=== PATIENT | female | born 1970 | race Caucasian/White ===

== ENCOUNTER 2017-06-16 07:41 | Day surgery (SDC) | payer BC, OTHER ==
[2017-06-12 11:26] VITALS: BMI 20.3
[~2017-06-16 07:41] MED LIST: LACTATED RINGERS 1,000 ML IV SCH; LIDOCAINE 1% 20 ML VIAL (10MG/ML) FOR IV START INTRADERMA PRN
[2017-06-16 08:17] VITALS: RESP 16; TEMP 97.6
[2017-06-16] MEDS ORDERED: LIDOCAINE 1% 20 ML VIAL (10MG/ML) FOR IV START INTRADERMA ONE (08:29)
[2017-06-16] MEDS ORDERED: LIDOCAINE 1% INJ 10MG/ML (20 ML MDV) ONE (09:17)
[2017-06-16] MEDS ORDERED: PROPOFOL 10 MG/ML 20 ML VIAL IV ONE (09:17)
--- NOTE | 2017-06-16 09:23 | P.GSHP ---
History of Present Illness H&P Date: 06/16/17 Chief Complaint: Constipation, abdominal pain This a 47-year-old female who presents today for colonoscopy. She's had issues with constipation abdominal pain. Past Medical History Past Medical History: Asthma, Cancer, COPD, Musculoskeletal Disorder Additional Past Medical History / Comment(s): CHRONIC LOWER BACK PAIN. "STAGE 1 CERVICAL CA." "EARLY COPD." CONSTIPATION, NO BM UNLESS USING MOM FOR PAST 1 1/2 MONTHS. History of Any Multi-Drug Resistant Organisms: None Reported Past Surgical History: Hysterectomy Additional Past Surgical History / Comment(s): RT OVARY, TUBE REMOVED. LAPAROSCOPIES. SINUS SURGERY. CERVIX EXCISION. Past Anesthesia/Blood Transfusion Reactions: No Reported Reaction Smoking Status: Current every day smoker - Past Family History Mother Family Medical History: Cancer Medications and Allergies Home Medications Medication Instructions Recorded Confirmed Type QUEtiapine FUMARATE [SEROquel] 350 mg PO HS 02/09/14 06/16/17 History SUMAtriptan SUCCINATE [Imitrex] 100 mg PO DIRECTED PRN 02/09/14 06/16/17 History Topiramate [Topamax] 150 mg PO BID 02/09/14 06/16/17 History Magnesium Hydroxide [Milk of 400 mg PO DIRECTED PRN 06/12/17 06/16/17 History Magnesia] Naproxen [Naprosyn] 500 mg PO Q12HR PRN 06/12/17 06/16/17 History SUMAtriptan SUCCINATE [Imitrex] 6 mg SQ DIRECTED PRN 06/12/17 06/16/17 History diphenhydrAMINE [Benadryl] 50 mg PO BID PRN 06/12/17 06/16/17 History Allergies Allergy/AdvReac Type Severity Reaction Status Date / Time No Known Allergies Allergy Verified 06/16/17 08:05 Surgical - Exam Vital Signs Temp Pulse Resp BP Pulse Ox 97.6 F 97 16 110/73 98 06/16/17 08:15 06/16/17 08:15 06/16/17 08:15 06/16/17 08:15 06/16/17 08:15 - General well developed, no distress - Eyes PERRL - ENT normal pinna - Neck no masses - Respiratory normal expansion - Cardiovascular Rhythm: regular - Abdomen Abdomen: soft, non tender Assessment and Plan Assessment: Constipation, abdominal pain. We'll perform colonoscopy.
--- NOTE | 2017-06-16 09:42 | P.OP ---
Date of Procedure: 06/16/17 Preoperative Diagnosis: Abdominal pain Constipation Postoperative Diagnosis: Mild diverticulosis Rectal polyp Procedure(s) Performed: Colonoscopy Anesthesia: MAC Surgeon: Surendra Alexis Pathology: other (Rectal polyp) Condition: stable Disposition: PACU Description of Procedure: The patient's placed on the endoscopy table in the lateral position. She received IV sedation. Digital rectal exam was performed which revealed no rebound is. The flexible colonoscope was then placed patient anus passed throughout the entire colon. The ileocecal valve was visualized. The cecum, ascending and transverse colon appeared normal. In the descending and sigmoid there was mild diverticular changes. The scope was then brought back the rectum and another polyp seen this removed the forcep. Scope was withdrawn for patient.
[2017-06-16 10:01] VITALS: BP 110/74; PULSE 74
== END 2017-06-16 10:20 | disposition home or self-care (01) ==
LOC: ORWHC2ENDO 07:41
PROVIDERS: ATTEND Surgery
DX: K62.1 Rectal polyp (principal); K57.30 Diverticulosis of large intestine without perforation or abscess without bleeding; Z85.41 Personal history of malignant neoplasm of cervix uteri; J44.9 Chronic obstructive pulmonary disease, unspecified; M54.5 Low back pain; G89.29 Other chronic pain; G43.909 Migraine, unspecified, not intractable, without status migrainosus; Z79.899 Other long term (current) drug therapy; F17.210 Nicotine dependence, cigarettes, uncomplicated
CPT/HCPCS: 88305; 45380; J2001; J2704

== ENCOUNTER → 2018-02-10 | Outpatient (CLI) | payer BC ==
--- NOTE | 2018-02-15 12:00 | MM ---
Reason for exam: screening (asymptomatic). Last mammogram was performed 3 years and 10 months ago. History: Patient history of endometrial cancer. Family history of breast cancer in mother at age 65. Physical Findings: A clinical breast exam by your physician is recommended on an annual basis and results should be correlated with mammographic findings. MG 3D Screening Mammo W/Cad Bilateral CC and MLO view(s) were taken. Prior study comparison: April 26, 2014, bilateral MG screening mammo w CAD. May 24, 2010, bilateral digital screening mammo w/CAD. The breast tissue is heterogeneously dense. This may lower the sensitivity of mammography. No significant changes when compared with prior studies. ASSESSMENT: Benign, BI-RAD 2 RECOMMENDATION: Routine screening mammogram of both breasts in 1 year.
== END | disposition home or self-care (01) ==
LOC: RADMAMWWP 15:12
PROVIDERS: ATTEND Family Medicine
DX: Z12.31 Encounter for screening mammogram for malignant neoplasm of breast (principal)
CPT/HCPCS: 77063; 77067

== ENCOUNTER → 2019-07-25 | Outpatient (CLI) | payer OTHER ==
--- NOTE | 2019-07-25 10:36 | NM ---
EXAMINATION TYPE: NM hepatobiliary w EF DATE OF EXAM: 07/25/2019 COMPARISON: NONE HISTORY: K 80.20 TECHNIQUE: After the intravenous administration of 4.8 mCi Tc 99m Mebrofenin hepatobiliary scintigrap hy is performed. Immediate images post injection. FINDINGS: There is satisfactory initial accumulation of tracer by the liver. The gallbladder is visualized wit hin 46 minutes. The small bowel activity is noted within 34 minutes. At one hour 8 ounces of oral e nsure plus is given to mimic CCK and gallbladder ejection fraction is calculated at 77 %, in the norm al range. Therefore there is no scintigraphic evidence of cystic or common bile duct obstruction to suggest acute cholecystitis or gallbladder dyskinesia. IMPRESSION: No scintigraphic evidence of acute cholecystitis, chronic cholecystitis, nor biliary dysk inesia.
== END | disposition home or self-care (01) ==
LOC: RADNMMAIN 07:16
PROVIDERS: ATTEND Internal Medicine
DX: K80.20 Calculus of gallbladder without cholecystitis without obstruction (principal)
CPT/HCPCS: 78226; A9537

== ENCOUNTER → 2019-12-07 | Outpatient (CLI) | payer OTHER ==
--- NOTE | 2019-12-07 11:59 | XR ---
EXAMINATION TYPE: XR chest 2V DATE OF EXAM: 12/07/2019 COMPARISON: 01/03/2015 TECHNIQUE: PA and lateral views submitted. HISTORY: Sternal and chest pain FINDINGS: The lungs are clear and there is no pneumothorax, pleural effusion, or focal pneumonia. Hyperinflat ion suggests COPD. Biapical pleural thickening. No overt failure. Heart size normal. There is a scoli osis. Hypertrophic and degenerative change of the spine. IMPRESSION: 1. No acute process. Correlate for COPD.
== END | disposition home or self-care (01) ==
LOC: RADXRYALE 11:40
PROVIDERS: ATTEND Internal Medicine
DX: R07.89 Other chest pain (principal)
CPT/HCPCS: 71046

== ENCOUNTER 2020-04-03 06:31 | Day surgery (SDC) | payer OTHER ==
[2020-03-27 15:19] VITALS: BMI 18.2
[~2020-04-03 06:31] MED LIST changes: +ALPRAZolam 0.25 MG TAB PO PRN; +ALPRAZolam 0.5 MG TAB PO PRN; +ASPIRIN 325 MG TAB PO STA; +ATORVASTATIN 80 MG TAB PO STA; -LACTATED RINGERS 1,000 ML IV SCH; -LIDOCAINE 1% 20 ML VIAL (10MG/ML) FOR IV START INTRADERMA PRN; +NITROGLYCERIN SL TABS 0.4 MG TAB SUBLINGUAL PRN; +SODIUM CHLORIDE 0.9% 1,000 ML in EMPTY BAG 1 BAG IV ONE
[2020-04-03] MEDS ORDERED: FAMOTIDINE 20 MG/2 ML VIAL IV STA (06:47)
[2020-04-03] MEDS ORDERED: diphenhydrAMINE 50 MG/ML 1 ML VIAL IVP STA (06:47)
[2020-04-03] MEDS ORDERED: methylPREDNISolone SOD SUCCI 125 MG/2 ML VIAL IV STA (06:47)
[2020-04-03 07:13] VITALS: RESP 18; TEMP 98.2
[2020-04-03] MEDS ORDERED: MIDAZOLAM 2 MG/2 ML VIAL IV ONE ×2 (07:44→07:46)
[2020-04-03] MEDS ORDERED: fentaNYL (PF) 50 MCG/ML 2 ML AMP IV ONE (07:44)
[2020-04-03] MEDS: LIDOCAINE 1% INJ 10MG/ML (20 ML MDV) SQ ONE ×2 (07:46→07:53)
[2020-04-03] MEDS ORDERED: IOPAMIDOL-370 125ML BTL INJ ONE (08:05)
[2020-04-03] MEDS ORDERED: RX INFO: IV CONTRAST WAS GIVEN 1 EACH MISC MISCELLANE PRN (08:19)
[2020-04-03] MEDS ORDERED: SODIUM CHLORIDE 0.9% 1,000 ML IV SCH (08:30)
--- NOTE | 2020-04-03 08:33 | P.CARDCATH ---
Date of Procedure: 04/03/20 Preoperative Diagnosis: recurrent chest pains, smoking and family history Postoperative Diagnosis: normal coronary arteries Procedure(s) Performed: left heart catheterization without left ventriculography Description of Procedure: HISTORY: This is a 49-year-old female with history of smoking, family history of ischemic heart disease who has been experiencing recurrent chest pains. Patient had a negative stress test. However, patient continued to have chest pain and wanted to have cardiac catheterization for definite diagnosis. CONSENT:I have discussed the risks, benefits and alternative therapies for the above-mentioned procedure and for both sedation/analgesia as well as necessary blood product administration, if indicated, as they pertain to this patient. The patient has indicated understanding and acceptance of the risks and procedures discussed. PROCEDURE: Patient was brought to the lab in a fasting state. Patient was given some IV sedation.Attempts were made to do catheterization from right radial stacey ding . The right radial artery was entered, but wire could not be advanced.subsequently, the procedure was finished from the right groin approach. Hemostasis was obtained with manual compression. The right groin is infiltrated with lidocaine and right femoral artery was entered using Seldinger technique. A 6-Irish catheter was left in place and selective coronary arteriography and left ventriculography was performed. Patient tolerated the procedure well. Femoral angiogram was performed and manual compression was applied for hemostasis. No immediate complications were noted and patient was transferred to [facility] in a stable condition Conscious Sedation: Versed 1mg Fentanyl 50 g Duration 27minutes HEMODYNAMICS: Aortic pressure is about 100/70.The left ventricle end-diastolic pressure was 12-15. There was no gradient across the aortic valve SELECTIVE CORONARY ARTERIOGRAPHY: LEFT MAIN: normal length and free of occlusive disease THE LEFT ANTERIOR DESCENDING CORONARY ARTERY:Good caliber vessel which wraps around the apex. Free of any occlusive disease THE LEFT CIRCUMFLEX AND IS CORONARY ARTERY: Moderate caliber vessel free of occlusive disease THE RIGHT CORONARY ARTERY: Good caliber vessel and dominant in distribution. Free of any occlusive disease LEFT VENTRICULOGRAPHY: Not performed FINAL IMPRESSION: Normal coronary arteries. Normal end-diastolic pressure. No gradient across the aortic valve PLAN: Medical therapy and this factor modification PROGNOSIS: Good
[2020-04-03] MEDS ORDERED: SUMATRIPTAN SUCCINATE 100 MG PO PRN (14:10)
[2020-04-03] MEDS ORDERED: SUMAtriptan succinate 50 MG TAB PO ONE (14:15)
[2020-04-03 17:18] VITALS: BP 98/64; PULSE 77
== END 2020-04-03 16:15 | disposition home or self-care (01) ==
LOC: CATHCVL 06:31
PROVIDERS: ATTEND Internal Medicine Cardiovascular Disease
DX: R07.9 Chest pain, unspecified (principal); R00.2 Palpitations; R00.0 Tachycardia, unspecified; F17.200 Nicotine dependence, unspecified, uncomplicated; Z82.49 Family history of ischemic heart disease and other diseases of the circulatory system
CPT/HCPCS: 93458; C1894 ×2; C1769 ×3; J2250; J1200; J2930; J2001; J3010; Q9967

== ENCOUNTER → 2020-05-24 | Outpatient (CLI) | payer OTHER ==
--- NOTE | 2020-05-24 16:52 | XR ---
Bilateral RIBS and chest x-ray HISTORY: Pain 4 views of the right ribs, 4 views of the left ribs and a frontal view of the chest are submitted and correlated prior chest x-ray 12/07/2019 Bone mineralization is maintained. There is no evident displaced rib fracture. No pneumothorax or ple ural effusion. Prominent lung volumes may be indicative of underlying COPD. There is thoracic spondyl osis present. Spinal curvature is present. Cardiac mediastinal silhouette is stable. Apical pleural t hickening is unchanged. No pneumothorax or pleural effusion. IMPRESSION: There is an underlying scoliotic curvature of the thoracic lumbar spine. Increased lung v olumes suggest COPD. Bone scan may be of benefit to assess for occult rib abnormality as indicated.
== END | disposition home or self-care (01) ==
LOC: RADXRYALE 12:58
PROVIDERS: ATTEND Internal Medicine
DX: R07.81 Pleurodynia (principal)
CPT/HCPCS: 71111

== ENCOUNTER → 2020-06-13 | Outpatient (CLI) | payer OTHER | END | disposition home or self-care (01) | LOC: LABWHC1 16:01 | PROVIDERS: ATTEND Internal Medicine | DX: Z20.822 Contact with and (suspected) exposure to COVID-19 (principal) | CPT/HCPCS: U0003; C9803 ==

== ENCOUNTER → 2020-07-26 | Outpatient (CLI) | payer OTHER | END | disposition home or self-care (01) | LOC: RADUSWWP 06:55 | PROVIDERS: ATTEND Family Medicine | DX: I73.9 Peripheral vascular disease, unspecified (principal) | CPT/HCPCS: 93922 ==

== ENCOUNTER → 2020-09-04 | Outpatient (CLI) | payer OTHER ==
--- NOTE | 2020-09-04 12:59 | BD ---
EXAMINATION TYPE: Axial Bone Density DATE OF EXAM: 09/04/2020 COMPARISON: NONE CLINICAL HISTORY: 50 YR OLD FEMALE.....ICD-10 CODE: Z78.9 POST MENOPAUSAL Height: 63 Weight: 112 FRAX RISK QUESTIONS: Glucocorticoids (More than 3mos): YES (Ex: prednisone, prednisolone, methylprednisolone, dexamethasone, and hydrocortisone). Current Tobacco Use: YES RISK FACTORS HISTORY OF: Diet low in dairy products/other sources of calcium: YES, ALLERGIC Postmenopausal woman: YES, AT AGE 46 Hyperparathyroidism: NO Adrenal Insufficiency: NO MEDICATIONS: Prednisone or other steroids: ALBUTEROL, COPD AND ASTHMA, MANY YRS Additional Medications: IMITREX, NSAID PRN Additional History: MIGRAINES, ARTHRITIS PAIN EXAM MEASUREMENTS: Bone mineral densitometry was performed using the [employer]. Bone mineral density as measured about the Lumbar spine is: ----- L1-L4(G/cm2): 0.968 T Score Values are as follows: ----- L1: -2.1 ----- L2: -1.7 ----- L3: -1.6 ----- L4: -1.1 ----- L1-L4: -1.8 Bone mineral density THIS IS FIRST DEXA SCAN....BASELINE STUDY Bone mineral density about the R hip (g/cm2): 0.832 Bone mineral density about the L hip (g/cm2): 0.777 T Score values are as follows: -----R Neck: -1.8 -----L Neck: -2.2 -----R Total: -1.4 -----L Total: -1.8 Bone mineral density BASELINE STUDY FRAX%s: THERE IS A 10.9% CHANCE FOR A MAJOR OSTEOPOROTIC FX AND A 3.3% FOR HIP......PROBABILITY FO R FX IN 10 YRS TIME IMPRESSION: Osteopenia. NOTE: T-SCORE=SD OF THE YOUNG ADULT MEAN.
--- NOTE | 2020-09-06 09:28 | MM ---
Reason for exam: screening (asymptomatic). Last mammogram was performed 2 years and 7 months ago. History: Patient is postmenopausal and has history of endometrial cancer at age 35. Family history of breast cancer in mother at age 65 and breast cancer in maternal grandmother. Physical Findings: A clinical breast exam by your physician is recommended on an annual basis and results should be correlated with mammographic findings. MG 3D Screening Mammo W/Cad Bilateral CC and MLO view(s) were taken. Prior study comparison: February 10, 2018, bilateral MG 3d screening mammo w/cad. April 26, 2014, bilateral MG screening mammo w CAD. The breast tissue is heterogeneously dense. This may lower the sensitivity of mammography. ASSESSMENT: Negative, BI-RAD 1 RECOMMENDATION: Routine screening mammogram of both breasts in 1 year.
== END | disposition home or self-care (01) ==
LOC: RADMAMWWP 06:48
PROVIDERS: ATTEND Family Medicine
DX: Z12.31 Encounter for screening mammogram for malignant neoplasm of breast (principal); Z13.820 Encounter for screening for osteoporosis; M85.89 Other specified disorders of bone density and structure, multiple sites; Z78.0 Asymptomatic menopausal state; Z80.3 Family history of malignant neoplasm of breast
CPT/HCPCS: 77063; 77067; 77080

== ENCOUNTER → 2020-09-25 | Outpatient (CLI) | payer OTHER ==
--- NOTE | 2020-09-25 08:54 | CT ---
EXAMINATION TYPE: CT facial bones wo con DATE OF EXAM: 09/25/2020 COMPARISON: NONE HISTORY: Chronic sinusitis, unspecified per order. Headaches with extremity weakness and numbness per patient. CT DLP: 646 mGycm. Automated Exposure Control for Dose Reduction was Utilized. TECHNIQUE: CT scan of the facial bones is performed without contrast, axial images are obtained, navjot nal reformatted images are also reviewed. FINDINGS: The paranasal sinuses including the frontal, ethmoid, sphenoid, and maxillary sinuses bila terally are well-aerated without suspicious opacification or air-fluid levels. The ostiomeatal compl ex is widely patent bilaterally on the coronal images. Orbital floors and navarro are intact. The globes are intact bilaterally. The zygomatic arches are inta ct. The nasal bones are intact. Visualized portion of mandible is intact. The temporomandibular joint s are maintained bilaterally. The pterygoid plates are intact. Visualized portion of mastoid air cells show no abnormal opacification. Visualized portion of brain p arenchyma is unremarkable. IMPRESSION: The sinuses are clear and the ostiomeatal complex is patent bilaterally.
== END | disposition home or self-care (01) ==
LOC: RADCTMAIN 07:27
PROVIDERS: ATTEND Family Medicine
DX: J32.9 Chronic sinusitis, unspecified (principal); R51.9 Headache, unspecified; R29.898 Other symptoms and signs involving the musculoskeletal system; R20.2 Paresthesia of skin
CPT/HCPCS: 70486

== ENCOUNTER → 2020-11-21 | Outpatient (CLI) | payer OTHER ==
--- NOTE | 2020-11-21 18:44 | CONS ---
CONSULTATION DATE OF SERVICE: 11/21/2020 This 50-year-old lady has been evaluated in the sleep center for multiple awakenings from sleep, snoring, awakenings with vivid dreams of smoke and fire. HISTORY OF PRESENT ILLNESS/SLEEP-WAKE EVALUATION: The patient has a positive history of sleepwalking until age of 28. At present her sleep schedule is from 10 p.m. to 5 a.m. She does have problems with falling asleep and has a TV set in the bedroom. She usually sleeps on the side position. She snores and wakes up from sleep 4 times with 3 episodes of nocturia. Positive history of palpitations and heartburn. In the morning the patient wakes up tired, worries about her sleep, has problems with concentration and sexual dysfunction. [place] Sleepiness Scale is 6. The patient may take one nap in the morning. She takes two caffeinated beverages in the morning and one in the afternoon. Positive history of night terrors in the past. PAST MEDICAL HISTORY: Positive for headaches, some of them extremely strong and long. Some of them happened after awakenings in the morning. Asthma, arthritis, cervical cancer, acid reflux, nasal polyps. PAST SURGICAL HISTORY: Hysterectomy, partial. Surgery for cancer of the cervix. Sinus surgery. SOCIAL HISTORY: Positive for 30 pack/years of smoking. Continues to smoke. MEDICATIONS: 1. Imitrex 100 mg as needed. 2. 100 mg as needed for migraines. FAMILY HISTORY: Stroke, diabetes. REVIEW OF SYSTEMS: No fevers. No double vision. No recent chest pain. No shortness of breath. No abdominal pain. No bleeding episodes. No blood in the urine. No seizure episodes. Multiple awakenings from sleep, episodes of migraines, some of them after awakenings in the morning. PHYSICAL EXAMINATION: GENERAL: lady without distress. VITAL SIGNS: BP 121/75, HR 78, RR 12, height 5 feet 5-3/4 inches, weight 111 pounds, body mass index 18.4, temperature 97.2, oxygen saturation at room air 95%. HEENT: PERRLA, EOMI, evaluation of oropharynx showed tongue protrudes midline. Extremely low position of soft palate; Mallampati IV. NECK: Supple, no JVD. Thyroid is not palpable. Neck measures 14-1/2 inches in circumference. LUNGS: Clear to percussion and to auscultation. Good air exchange. No wheezing or rhonchi. HEART: S1, S2 regular. No murmurs, gallops, or rubs. ABDOMEN: Soft and nontender. Bowel sounds are present. No organomegaly appreciated. EXTREMITIES: No clubbing or cyanosis. [employer] AGENT: Awake, alert, and oriented X3. Cranial nerves 2 to 7 intact. There is no fasciculation or atrophy. noted. No focal deficits observed. IMPRESSION: 1. Snoring, multiple awakenings from sleep with nocturia, extremely low position of soft palate, Mallampati IV; possible obstructive sleep apnea-hypopnea syndrome. 2. History of sleepwalking in the past. 3. Episodes of awakenings with vivid dreams. 4. History of night terrors. 5. History of migraines; some episodes started after awakenings in the morning. 6. History of asthma. 7. History of arthritis. 8. History of cervical carcinoma, treated surgically. 9. Status post partial hysterectomy. 10.Acid reflux. 11.History of nasal polyps. 12.Status post sinus surgery. PLAN: 1. Polysomnography for evaluation of patient's breathing during sleep and also to check for any abnormal movements. 2. Sleep hygiene with regular time in bed for at least 7-1/2 to 8 hours. 3. No driving if feeling sleepiness. 4. Following plan after reviewing results of the sleep study. Thank you very much for referring this patient for consultation. Sincerely, Prosper Westfall MD, PhD, FAASM Diplomat of [employer] Sleep Medicine Board of [employer] of [facility] MMODL / IJN: [id number] /
== END ==
LOC: SLEEP 11:24
PROVIDERS: ATTEND Internal Medicine
DX: R35.1 Nocturia (principal); R06.83 Snoring; G47.8 Other sleep disorders; F51.4 Sleep terrors [night terrors]; F51.3 Sleepwalking [somnambulism]; G43.909 Migraine, unspecified, not intractable, without status migrainosus; J45.909 Unspecified asthma, uncomplicated; F17.210 Nicotine dependence, cigarettes, uncomplicated; M19.90 Unspecified osteoarthritis, unspecified site; Z85.41 Personal history of malignant neoplasm of cervix uteri; Z90.711 Acquired absence of uterus with remaining cervical stump; K21.9 Gastro-esophageal reflux disease without esophagitis; Z98.890 Other specified postprocedural states; Z87.09 Personal history of other diseases of the respiratory system; Z91.041 Radiographic dye allergy status
CPT/HCPCS: 99211

== ENCOUNTER → 2021-04-03 | Outpatient (CLI) | payer OTHER ==
--- NOTE | 2021-04-03 11:20 | XR ---
EXAMINATION TYPE: XR chest 2V DATE OF EXAM: 04/03/2021 COMPARISON: Chest x-ray 05/24/2020 HISTORY: M50.022, M50.123 TECHNIQUE: Frontal and lateral views of the chest are obtained. FINDINGS: There is no focal air space opacity, pleural effusion, or pneumothorax seen. Biapical pleu ral thickening is noted. The cardiac silhouette size is within normal limits. Prominent lung volumes suggest underlying COPD. The osseous structures are intact, there is thoracic spondylosis, slight spi nal curvature. IMPRESSION: No acute cardiopulmonary process.
== END | disposition home or self-care (01) ==
LOC: RADXRMAIN 11:00
PROVIDERS: ATTEND Neurological Surgery
DX: M50.022 Cervical disc disorder at C5-C6 level with myelopathy (principal); M50.123 Cervical disc disorder at C6-C7 level with radiculopathy
CPT/HCPCS: 71046

== ENCOUNTER → 2021-04-03 | Outpatient (CLI) | payer OTHER ==
[2021-04-03 11:27] LABS: INR 0.9 (<1.2); Partial Thromboplastin Time 27.4 sec (22.0-30.0); Prothrombin Time 9.8 sec (9.0-12.0)
[2021-04-03 11:59] LABS: Appearance,Urine Clear (Clear); Bilirubin,Urine Negative (Negative); Blood,Urine Small (Negative); Color,Urine Yellow; Glucose,Urine (UA) Negative (Negative); Ketones,Urine Negative (Negative); Leukocyte Esterase,Urine Negative (Negative); Mucus,Urine Many /hpf; Nitrite,Urine Negative (Negative); Protein,Urine Negative (Negative); RBC,Urine 6 /hpf (0-5); Specific Gravity,Urine 1.016 (1.001-1.035); Squamous Epithelial Cell,Urine <1 /hpf (0-4); Urobilinogen,Urine <2.0 mg/dL (<2.0); WBC,Urine 1 /hpf (0-5)
[2021-04-03 14:43] LABS: Basophils # (A) 0.04 X 10*3/uL (0.00-0.10); Basophils % (A) 0.5 %; Eosinophils # (A) 0.07 X 10*3/uL (0.04-0.35); Eosinophils % (A) 0.8 %; HCT 41.9 % (37.2-46.3); HGB 13.6 g/dL (12.0-15.0); Lymphocytes # (A) 4.02 X 10*3/uL (0.90-5.00); Lymphocytes % (A) 45.8 %; MCH 31.6 pg (27.0-32.0); MCHC 32.5 g/dL (32.0-37.0); MCV 97.4 fL (80.0-97.0); Monocytes # (A) 0.58 X 10*3/uL (0.20-1.00); Monocytes % (A) 6.6 %; Neutrophils # (A) 4.05 X 10*3/uL (1.80-7.70); Neutrophils % (A) 46.2 %; Platelet Count 281 X 10*3/uL (140-440); RDW 12.6 % (11.5-14.5); WBC 8.77 X 10*3/uL (4.50-10.00)
[2021-04-03 15:26] LABS: ALT 15 U/L (8-44); AST 17 U/L (13-35); African American GFR (CKD) 119.3 (60.0-200.0); Albumin 4.5 g/dL (3.8-4.9); Alkaline Phosphatase 74 U/L (41-126); BUN/Creat Ratio 21.29 Ratio (12.00-20.00); Blood Urea Nitrogen 13.5 mg/dL (9.0-27.0); Calcium 9.8 mg/dL (8.7-10.3); Chloride 103 mmol/L (96-109); Globulin 2.1 g/dL (1.6-3.3); Glucose 75 mg/dL (70-110); Non-African American GFR(CKD) 102.9 (60.0-200.0); Potassium 3.7 mmol/L (3.5-5.5); Sodium 140 mmol/L (135-145); Total Bilirubin <0.20 mg/dL (0.30-1.20); Total Protein 6.6 g/dL (6.2-8.2)
== END | disposition home or self-care (01) ==
LOC: LABWHC1 10:42
PROVIDERS: ATTEND Nurse Practitioner Family
DX: M50.022 Cervical disc disorder at C5-C6 level with myelopathy (principal); M50.123 Cervical disc disorder at C6-C7 level with radiculopathy
CPT/HCPCS: 36415; 80053; 81001; 85025; 85610; 85730; 87070; 93005

== ENCOUNTER 2021-04-27 04:46 | Emergency (ER) | payer OTHER ==
[2021-04-27 04:58] VITALS: RESP 18
[2021-04-27] MEDS ORDERED: MORPHINE SULFATE 4 MG/ML SYRINGE IV STA (05:14)
[2021-04-27] MEDS ORDERED: ONDANSETRON 4 MG/2 ML VIAL IVP STA (05:14)
--- NOTE | 2021-04-27 05:36 | ED ---
Chest Pain HPI - General Source: patient Mode of arrival: EMS - History of Present Illness Complaint: chest pain Onset/Timin -: days(s) Onset: during rest Pain Location: right chest Pain Radiation: neck Severity: severe Quality: aching Consistency: constant Improves With: nothing Worsens With: nothing Context: recent surgery Anginal Symptoms: dyspnea Treatments Prior to Arrival: other (percocet and "muscle relaxant") <Edgar Duque - Last Filed: 04/27/21 06:12> <Yousuf Stanley - Last Filed: 04/27/21 08:03> - General Chief Complaint: Chest Pain Stated Complaint: Post-op neck pain Time Seen by Provider: 04/27/21 05:02 - History of Present Illness Initial Comments: this patient is a 51-year-old woman who presents with complaint of pain to the upper right anterior chest. This been coming on over the past couple of days worse last night. The patient states that she had an anterior cervical fusion performed at [facility] by Dr. Daugherty on Thursday at 4pm. She went home that night. She has had increasing burning and aching pain over the past day-to-two. She sts that the home medications are not working well. (Edgar Duque) - Related Data Home Medications Medication Instructions Recorded Confirmed SUMAtriptan SUCCINATE [Imitrex] 100 mg PO DIRECTED PRN 02/09/14 04/03/20 Ibuprofen [Motrin] 600 mg PO DAILY PRN 03/27/20 04/03/20 Allergies Allergy/AdvReac Type Severity Reaction Status Date / Time mri contrast AdvReac chest Uncoded 04/03/20 06:41 tightness and burning Review of Systems ROS Other: All systems not noted in ROS Statement are negative. Constitutional: Denies: fever, chills, weakness Respiratory: Denies: cough, dyspnea Cardiovascular: Reports: as per HPI, chest pain. Denies: palpitations, orthopnea, edema, syncope Gastrointestinal: Denies: abdominal pain, vomiting, diarrhea, constipation Genitourinary: Denies: dysuria, hematuria Musculoskeletal: Denies: back pain Skin: Denies: rash Neurological: Denies: headache, weakness, numbness <Edgar Duque - Last Filed: 04/27/21 06:12> ROS Other: All systems not noted in ROS Statement are negative. <Yousuf Stanley Last Filed: 04/27/21 08:03> ROS Statement: Those systems with pertinent positive or pertinent negative responses have been documented in the HPI. EKG Findings - EKG Results: EKG: sinus rhythm (Rate 74 bpm), normal QRS, normal ST/T - Blocks, Malone, Hypertrophy, ST Abn: QRS axis and voltage: left axis deviation (-30 to -90) <Edgar Duque - Last Filed: 04/27/21 06:12> Past Medical History Past Medical History: Asthma, Cancer, Chest Pain / Angina, COPD, Musculoskeletal Disorder Additional Past Medical History / Comment(s): CHRONIC LOWER BACK PAIN. "STAGE 1 CERVICAL CA." "EARLY COPD." CONSTIPATION, NO BM UNLESS USING MOM FOR PAST 1 1/2 MONTHS. chest pain with exertion History of Any Multi-Drug Resistant Organisms: None Reported Past Surgical History: Hysterectomy Additional Past Surgical History / Comment(s): RT OVARY, TUBE REMOVED. LAPAROSCOPIES. SINUS SURGERY. CERVIX EXCISION. Past Anesthesia/Blood Transfusion Reactions: No Reported Reaction Past Psychological History: Anxiety Smoking Status: Current every day smoker - Past Family History Mother Family Medical History: Cancer <Edgar Duque - Last Filed: 04/27/21 06:12> General Exam General appearance: alert, in no apparent distress Head exam: Present: atraumatic, normocephalic Eye exam: Present: normal appearance. Absent: scleral icterus, conjunctival injection ENT exam: Present: normal oropharynx Neck exam: Present: normal inspection, other (Cervical collar. Steri-strips are intact. Incision C/D/I. No erythema/drainage/tenderness) Respiratory exam: Present: normal lung sounds bilaterally. Absent: respiratory distress, wheezes, rales, rhonchi, stridor Cardiovascular Exam: Present: regular rate, normal rhythm, normal heart sounds. Absent: systolic murmur, diastolic murmur, rubs, gallop GI/Abdominal exam: Present: soft. Absent: distended, tenderness, guarding, rebound, rigid, mass Extremities exam: Present: normal inspection, normal capillary refill. Absent: pedal edema, calf tenderness Back exam: Present: normal inspection. Absent: CVA tenderness (R), CVA tenderness (L) Neurological exam: Present: alert Skin exam: Present: warm, dry, intact, normal color. Absent: rash <TrachEdgar burkett - Last Filed: 04/27/21 06:12> Course Vital Signs 04/27/21 04/27/21 04:49 06:17 Temperature 98.3 F Pulse Rate 76 81 Respiratory 18 18 Rate Blood Pressure 121/78 115/82 O2 Sat by Pulse 96 96 Oximetry Chest Pain MDM <JadenYousuf - Last Filed: 04/27/21 08:03> - MDM Imaging reviewed no evidence of acute processes patient does have evidence of emphysema the postsurgical site appears to be within normal limits no evidence of fluid collections hematoma. Good alignment. Please see complete report. I did discuss findings with the patient she states she is feeling somewhat improved reevaluation reveals she has tenderness over the costochondral margins and costosternal margin. No step-off no crepitation patient is complaining of some burning type sensation when swallowing she will receive a GI cocktail she does have follow-up with Dr. Daugherty at [facility]. She will be discharged she is in agreement with this. She does have Percocet at home for pain. We did discuss the use of anti-inflammatories which at this point he should be discussed with her doctor first. (Yousuf Stanley) Disposition <SidneykwadwoEdgar - Last Filed: 04/27/21 06:12> Is patient prescribed a controlled substance at d/c from ED?: No <Yousuf Stanley Filed: 04/27/21 08:03> Clinical Impression: Chest wall pain, Postop check Disposition: HOME SELF-CARE Condition: Good Instructions (If sedation given, give patient instructions): Chest Wall Pain (ED) Referrals: Kamilla Ghosh DO [Primary Care Provider] - 1-2 days
[2021-04-27 05:53] LABS: Basophils % (A) 0 %; Eosinophils # (A) 0.1 k/uL (0-0.7); Eosinophils % (A) 1 %; HCT 41.4 % (34.0-46.0); HGB 13.6 gm/dL (11.4-16.0); Lymphocytes # (A) 3.3 k/uL (1.0-4.8); Lymphocytes % (A) 30 %; MCH 31.6 pg (25.0-35.0); MCHC 32.8 g/dL (31.0-37.0); MCV 96.4 fL (80.0-100.0); Mean Platelet Volume 7.4; Monocytes # (A) 0.5 k/uL (0-1.0); Monocytes % (A) 5 %; Neutrophils # (A) 6.7 k/uL (1.3-7.7); Neutrophils % (A) 61 %; Platelet Count 329 k/uL (150-450); RDW 12.5 % (11.5-15.5)
[2021-04-27] MEDS ORDERED: diphenhydrAMINE 50 MG/ML 1 ML VIAL IVP STA (05:58)
[2021-04-27] MEDS ORDERED: methylPREDNISolone SOD SUCCI 125 MG/2 ML VIAL IV STA (05:58)
[2021-04-27] MEDS ORDERED: FAMOTIDINE 20 MG/2 ML VIAL IV STA (05:58)
[2021-04-27 06:02] LABS: INR 0.9 (<1.2); Partial Thromboplastin Time 26.9 sec (22.0-30.0); Prothrombin Time 9.6 sec (9.0-12.0)
[2021-04-27 06:03] LABS: ALT 12 U/L (4-34); AST 19 U/L (14-36); African American GFR (CKD) >90 (>60 ml/min/1.73 sqM); Alkaline Phosphatase 65 U/L (38-126); Amylase 67 U/L (30-110); Anion Gap 5 mmol/L; Blood Urea Nitrogen 9 mg/dL (7-17); Calcium 10.3 mg/dL (8.4-10.2); Carbon Dioxide 24 mmol/L (22-30); Chloride 108 mmol/L (98-107); Glucose 115 mg/dL (74-99); Lipase 101 U/L (23-300); Non-African American GFR(CKD) >90 (>60 ml/min/1.73 sqM); Sodium 137 mmol/L (137-145); Total Bilirubin 0.6 mg/dL (0.2-1.3); Total Protein 6.9 g/dL (6.3-8.2)
--- NOTE | 2021-04-27 06:55 | XR ---
EXAMINATION TYPE: XR chest 2V DATE OF EXAM: 04/27/2021 COMPARISON: Chest x-ray April 03, 2021 HISTORY: Chest pain. TECHNIQUE: Frontal and lateral views of the chest are obtained. FINDINGS: There is no suspicious focal air space opacity, pleural effusion, or pneumothorax seen. The cardiac silhouette size remains within normal limits. Anterior fusion plate in the lower cervical spine is now present IMPRESSION: No acute process.
--- NOTE | 2021-04-27 07:10 | CT ---
EXAMINATION TYPE: CT soft tissue neck w con DATE OF EXAM: 04/27/2021 HISTORY: S/p neck surgery 5 days ago, pain COMPARISON: NONE CT DLP: 187.1 mGycm. Automated Exposure Control for Dose Reduction was Utilized. TECHNIQUE: CT scan of the neck is performed with IV Contrast, patient injected with 100 mL of Isovue 370, axial images are obtained, coronal and sagittal reformatted images are reviewed. FINDINGS: Airway: Mild to moderate emphysematous change in the visualized upper lungs. Nonspecific narrowing of the hypopharyngeal airway just before the vocal cords just inferior to the piriform sinuses near axi al image 38, there is some prevertebral fluid at this level. Parotid/submandibular glands: No gross abnormality seen. Carotid/Vascular Structures: No significant abnormality. Osseous Structures: Slight scoliotic curvature and coronal images. There is anterior fusion plate wit h metallic disc material C5-C7 levels now identified. Position is felt satisfactory. Increase the [place] anterior to this consistent with some prevertebral fluid With some foci of gas extending to the right aspect and subcutaneous tissue is identified. Ill-define d fluid surrounds the right carotid artery seen best at mid to inferior aspect of the thyroid gland. No well-formed fluid collection or drainable abscess is seen. Other: No abnormal greater than 1 cm neck adenopathy. IMPRESSION: Postsurgical changes C5-C7 level are identified and appear satisfactory in position. Ther e is nonspecific prevertebral fluid and scattered foci of air extending to right of midline and to th e anterior wall of the lower neck. Findings favor post surgical etiology or expected changes. No well -formed fluid collection or drainable abscess identified.
[2021-04-27] MEDS ORDERED: MAG HYDROX/AL HYDROX/SIMETH 30 ML, HYOSCYAMINE ELIXIR 10 ML PO STA ×2 (08:03)
[2021-04-27 08:12] VITALS: BP 123/73; PULSE 85; TEMP 98
== END 2021-04-27 08:15 | disposition home or self-care (01) ==
LOC: EC 04:46
DX: R07.89 Other chest pain (principal); J44.9 Chronic obstructive pulmonary disease, unspecified; F17.200 Nicotine dependence, unspecified, uncomplicated; Z79.899 Other long term (current) drug therapy
CPT/HCPCS: 36415; 93005; 80053; 82150; 83690; 83735; 84484; 85025; 85610; 85730; 71046; 70491; 99285; 96374; 96375 ×4; J2270; J1200; J2930; J2405; Q9967

== ENCOUNTER → 2021-06-21 | Outpatient (CLI) | payer OTHER ==
--- NOTE | 2021-06-21 15:25 | XR ---
Cervical spine with flexion and extension HISTORY: [id number] CDD C5-C6/C6-C7 7 views of the cervical spine, comparison MRI cervical spine 06/29/2012, CT soft tissue neck 04/27/2021 Patient shows anterior cervical fusion and discectomy change at C5-C7, intervertebral spacers are pre sent. Foraminal encroachment is present at C6-7 bilaterally, oblique images on the left is somewhat l imited due to patient positioning. Cervical vertebral bodies show preserved height and bone mineraliz ation. No change in alignment on flexion and extension views. Prevertebral soft tissues otherwise nor mal. Multilevel facet arthropathy noted. IMPRESSION: Postop changes, foraminal encroachment and facet arthropathy.
== END | disposition home or self-care (01) ==
LOC: RADXRYALE 13:03
PROVIDERS: ATTEND Neurological Surgery
DX: M47.12 Other spondylosis with myelopathy, cervical region (principal); M47.22 Other spondylosis with radiculopathy, cervical region
CPT/HCPCS: 72052

== ENCOUNTER → 2021-08-22 | Outpatient (CLI) | payer OTHER ==
--- NOTE | 2021-08-22 18:37 | SFUN ---
SLEEP CENTER FOLLOW UP NOTE DATE OF SERVICE: 08/22/2021 This 51-year-old lady has come to the sleep center to discuss results of her sleep study and following plan. Recently the patient had a polysomnogram, and I discussed the results of the polysomnogram with her in detail. No significant respiratory abnormalities were documented, following today's criteria. Total apnea-hypopnea index 3.2, which is again by today's criteria is considered to be normal. [place] Sleepiness Scale today is zero. The sleep study did not show significant periodic limb movements. Sleep efficiency, though, during the sleep test was decreased to 77%. The patient continues to have difficulties initiating sleep at night. She usually goes to bed around 8 or 9 p.m. and falls asleep only around 12:30 or 1 a.m. Before going to bed she and her watch TV in the bedroom. They have been doing that for many years. CURRENT MEDICATIONS: Imitrex, PHYSICAL EXAMINATION: GENERAL: Pleasant patient in no distress. VITAL SIGNS: BP 109/76, HR 80, RR 12, height 5 feet 5 inches, weight 104.6 pounds, temperature 97.7, oxygen saturation at room air 95%. HEENT: PERRLA, EOMI, evaluation of oropharynx showed tongue protrudes midline. Low position of soft palate; Mallampati IV. NECK: Supple, no JVD. Thyroid is not palpable. LUNGS: Clear to percussion and to auscultation. Good air exchange. No wheezing or rhonchi. HEART: S1, S2 regular. No murmurs, gallops, or rubs. ABDOMEN: Soft and nontender. Bowel sounds are present. No organomegaly appreciated. EXTREMITIES: No clubbing or cyanosis. PRICING SPECIALIST: Awake, alert, and oriented X3. Cranial nerves 2 to 7 intact. There is no fasciculation or atrophy. noted. No focal deficits observed. IMPRESSION: 1. No significant respiratory abnormalities during the sleep study. 2. History of sleepwalking in the past. 3. History of migraine. 4. History of asthma. 5. History of arthritis. 6. History of cervical carcinoma, status post surgical treatment. 7. Status post partial hysterectomy. 8. Acid reflux. 9. History of nasal polyps. 10.Status post sinus surgery. 11.Psychophysiological insomnia. PLAN: 1. Sleep hygiene with time in bed for 7 hours. 2. I explained to the patient psychological techniques for treatment of insomnia, including stimulus control. The patient should not watch TV in the bedroom; no staying in bed without sleep; paradoxical intention; worry time; no watching clock; some restriction of time staying in bed to at least 7 hours to help consolidation of her sleep. 3. No driving if feeling any sleepiness. Thank you very much for allowing me to participate in the management of your patient. Sincerely, Prosper Westfall MD, PhD, FAASM Diplomat of [employer] Sleep Medicine Board of [place] [employer] of [facility] [place] MMODL / KRISTELN: [id number] /
== END ==
LOC: SLEEP 16:39
PROVIDERS: ATTEND Internal Medicine
DX: Z09 Encounter for follow-up examination after completed treatment for conditions other than malignant neoplasm (principal); G43.909 Migraine, unspecified, not intractable, without status migrainosus; J45.909 Unspecified asthma, uncomplicated; M19.90 Unspecified osteoarthritis, unspecified site; Z85.41 Personal history of malignant neoplasm of cervix uteri; K21.9 Gastro-esophageal reflux disease without esophagitis; Z90.710 Acquired absence of both cervix and uterus; Z87.09 Personal history of other diseases of the respiratory system; F51.04 Psychophysiologic insomnia; Z98.890 Other specified postprocedural states; F17.200 Nicotine dependence, unspecified, uncomplicated; Z91.041 Radiographic dye allergy status

== ENCOUNTER → 2021-11-20 | Outpatient (CLI) | payer OTHER ==
--- NOTE | 2021-11-20 13:34 | XR ---
EXAMINATION TYPE: XR cervical spine w flex/ext DATE OF EXAM: 11/20/2021 COMPARISON: 06/21/2021 HISTORY: Pain TECHNIQUE: seven views are submitted including flexion and extension lateral views. FINDINGS: The odontoid is intact. There are no compression deformities. The prevertebral soft tissue structur es are within normal limits. Postsurgical changes C5-C7. Alignment appears near-anatomic and stable from prior exam. Suspect bilateral foraminal protrusion C6-C7. Diffuse osteopenia. There is a slight alteration position of C4 relative to C5 on both flexion and extension views. IMPRESSION: 1. Postsurgical changes appear stable. There is slight alteration in position of C4 relative to C5 on flexion and extension views. 2 foraminal encroachment C6-C7 bilaterally.
== END | disposition home or self-care (01) ==
LOC: RADXRYALE 13:01
PROVIDERS: ATTEND Neurological Surgery
DX: M50.022 Cervical disc disorder at C5-C6 level with myelopathy (principal); M50.123 Cervical disc disorder at C6-C7 level with radiculopathy
CPT/HCPCS: 72052

== ENCOUNTER → 2021-11-22 | Outpatient (CLI) | payer OTHER | END | disposition home or self-care (01) | LOC: RADCTMAIN 14:28 | PROVIDERS: ATTEND Urology | DX: Z53.9 Procedure and treatment not carried out, unspecified reason (principal) ==

== ENCOUNTER → 2022-10-21 | Outpatient (CLI) | payer OTHER ==
--- NOTE | 2022-10-21 12:42 | CTL ---
EXAMINATION TYPE: CT Low Dose Lung DATE OF EXAM ORDERED: 10/21/2022 HISTORY: Z12.2 ,F17.210 NICOTINE DEPENDENCE, CIGARETTES, UN, 39 pack year history, current smoker. Maria D ng cancer screening CT DLP: 33.[address] CTDI: 0.9 mGy Automated exposure control for dose reduction was used. SCREENING VISIT: First screening visit COMPARISON: Chest radiograph 04/27/2021 TECHNIQUE: Low dose computed tomography scan was performed through the chest at 1 mm thick sections a nd reconstructed images in multiple planes at 1 mm and [address] DIAGNOSTIC QUALITY: Satisfactory FINDINGS: LUNG NODULES: Right midlung 3 mm pulmonary nodule (series 6, image 22). Right midlung elongated 5 mm pulmonary nodule (series 6, image 26). LUNGS: COPD: Severity: Mild to moderate centrilobular emphysematous changes. Fibrosis: Severity: None Lymph nodes: None Other findings: None RIGHT PLEURAL SPACE: Effusion: None Calcification: None Thickening: None Pneumothorax: None LEFT PLEURAL SPACE: Effusion: None Calcification: None Thickening: None Pneumothorax: None HEART: Heart Size: Normal Coronary Calcification: None Pericardial Effusion: None OTHER FINDINGS: Upper abdomen: None Bony thorax: No acute osseous abnormality. Cervical fusion hardware demonstrated. Supraclavicular region: None Other: None IMPRESSION: 1. Couple of pulmonary nodules measuring up to 5 mm. 2. Mild to moderate COPD changes. CT LUNG RAD AND CT CHEST RECOMMENDATION: Lung-Rad 2 Benign Appearance or Behavior: Continue annual sc reening with LDCT in 12 months. S Modifier (other clinically significant findings): None
== END | disposition home or self-care (01) ==
LOC: RADCTMAIN 12:03
PROVIDERS: ATTEND Family Medicine
DX: Z12.2 Encounter for screening for malignant neoplasm of respiratory organs (principal); J43.2 Centrilobular emphysema; R91.8 Other nonspecific abnormal finding of lung field; F17.210 Nicotine dependence, cigarettes, uncomplicated
CPT/HCPCS: 71271

== ENCOUNTER → 2023-04-23 | Outpatient (CLI) | payer OTHER ==
--- NOTE | 2023-04-23 15:50 | FL ---
EXAMINATION TYPE: FL barium swallow DATE OF EXAM: 04/23/2023 CLINICAL INDICATION: 52-year-old female K22.5, acquired diverticulum of esophagus COMPARISON: Correlation outside CT 03/05/2023 Total Fluoroscopy Time: 2 minutes 36 seconds Total DAP: 235.36 mGycm2. 50 images obtained. FINDINGS: The swallowing mechanism is normal. The patient is status post C5-C7 ACDF. Opposite the C6 level, the re is a moderate size Zenker's diverticulum projecting posteriorly and towards the left. This obscure s the mid to lower aspect of the ACDF fusion plate. Correlating with patient's outside CT of 03/05/20 23 shows the plate from the C7 vertebral body anterior cortex by approximately 4 mm. The pa tient indicates the region of the Zenker's diverticulum and inferior aspect of the fixation plate at the symptomatic site. The thoracic esophagus shows normal course, caliber, and motility. No mucosal abnormality is seen. No persisting filling defect or fixed narrowing is seen. There is a small sliding hiatal hernia present. No gastroesophageal reflux seen during the course of the exam. IMPRESSION: 1. Moderate sized Zenker's diverticulum at the C6 level. 2. C5-C7 ACDF. When correlating with patient's outside CT, the inferior aspect of the plate at C7 stacey ears to have backed out by 4 mm from the anterior vertebral body cortex. The patient indicates the Ze nker's diverticulum and C7 level as the symptomatic area. 3. Small sliding hiatal hernia. No gastroesophageal reflux seen.
== END | disposition home or self-care (01) ==
LOC: RADUSWWP 10:51
PROVIDERS: ATTEND Thoracic Surgery (Cardiothoracic Vascular Surgery)
DX: K22.5 Diverticulum of esophagus, acquired (principal); K44.9 Diaphragmatic hernia without obstruction or gangrene
CPT/HCPCS: 74220

== ENCOUNTER → 2023-07-07 | Outpatient (CLI) | payer OTHER ==
[2023-07-07 13:59] LABS: INR 0.9 (<1.2); Partial Thromboplastin Time 26.8 sec (22.0-30.0); Prothrombin Time 9.8 sec (10.0-12.5)
[2023-07-07 16:06] LABS: Basophils # (A) 0.04 X 10*3/uL (0.00-0.10); Basophils % (A) 0.5 %; Eosinophils # (A) 0.17 X 10*3/uL (0.04-0.35); Eosinophils % (A) 2.1 %; HCT 42.6 % (37.2-46.3); HGB 13.6 g/dL (12.0-15.0); Lymphocytes # (A) 3.95 X 10*3/uL (0.90-5.00); Lymphocytes % (A) 47.9 %; MCH 30.5 pg (27.0-32.0); MCHC 31.9 g/dL (32.0-37.0); MCV 95.5 FL (80.0-97.0); Monocytes # (A) 0.49 X 10*3/uL (0.20-1.00); Monocytes % (A) 5.9 %; NRBC Per 100 WBC 0 X 10*3/uL (0.00-0.01); Neutrophils # (A) 3.58 X 10*3/uL (1.80-7.70); Neutrophils % (A) 43.5 %; Platelet Count 265 X 10*3/uL (140-440); RBC 4.46 X 10*6/uL (4.10-5.20); RDW 12.5 % (11.5-14.5); WBC 8.24 X 10*3/uL (4.50-10.00)
[2023-07-07 16:20] LABS: Carbon Dioxide 24.1 mmol/L (21.6-31.8); Chloride 103 mmol/L (96-109); Glucose 98 mg/dL (70-110); Potassium 4.2 mmol/L (3.5-5.5); Sodium 139 mmol/L (135-145)
[2023-07-07 18:16] LABS: Appearance,Urine Clear (Clear); Bilirubin,Urine Negative (Negative); Blood,Urine Trace (Negative); Color,Urine Yellow (Yellow); Ketones,Urine Negative (Negative); Nitrite,Urine Negative (Negative); Specific Gravity,Urine 1.011 (1.001-1.030); Urobilinogen,Urine 0.2 E.U./DL
[2023-07-07 18:19] LABS: Bacteria,Urine None Seen (None Seen)
== END | disposition home or self-care (01) ==
LOC: LABPAT 13:13
PROVIDERS: ATTEND Thoracic Surgery (Cardiothoracic Vascular Surgery)
DX: Z01.818 Encounter for other preprocedural examination (principal); K22.5 Diverticulum of esophagus, acquired; R58 Hemorrhage, not elsewhere classified; R53.83 Other fatigue; R94.31 Abnormal electrocardiogram [ECG] [EKG]; Z79.899 Other long term (current) drug therapy
CPT/HCPCS: 36415; 80051; 81001; 82565; 82947; 84520; 85025; 85610; 85730; 86850; 86900; 86901; 87086; 93005

== ENCOUNTER 2023-07-16 08:05 | Observation (INO) | payer OTHER ==
[2023-07-13 14:26] VITALS: BMI 15.7
[2023-07-16] MEDS: LACTATED RINGERS 1,000 ML IV ONE ×2 (08:40)
[2023-07-16] MEDS: LIDOCAINE 1% (10MG/ML) FOR IV START INTRADERMA ONE (08:40)
[2023-07-16] MEDS: DEXAMETHASONE SOD PHOSPHATE 4 MG/ML 1 ML VIAL IVP ONE (08:50)
[2023-07-16] MEDS: ONDANSETRON 4 MG/2 ML VIAL ONE (08:50)
[2023-07-16] MEDS: MIDAZOLAM 2 MG/2 ML VIAL IVP ONE (08:50)
[2023-07-16] MEDS ORDERED: LIDOCAINE 1% INJ 10MG/ML (20 ML MDV) ONE (09:48)
[2023-07-16] MEDS ORDERED: fentaNYL (PF) 50 MCG/ML 2 ML AMP ONE (09:48)
[2023-07-16] MEDS ORDERED: SUCCINYLCHOLINE CHLORIDE 200 MG/10 ML VIAL IV ONE (09:48)
[2023-07-16] MEDS ORDERED: ePHEDrine 50 MG/ML 1 ML VIAL ONE (09:48)
[2023-07-16] MEDS ORDERED: DEXAMETHASONE SOD PHOSPHATE 10 MG/ML 1 ML VIAL ONE (09:48)
[2023-07-16] MEDS ORDERED: ROCURONIUM 10 MG/ML (5 ML VIAL) IV ONE (09:48)
[2023-07-16] MEDS ORDERED: PROPOFOL 10 MG/ML 20 ML VIAL IV ONE (09:48)
[2023-07-16] MEDS ORDERED: NEOSTIGMINE 1 MG/ML 10 ML VIAL ONE (09:48)
[2023-07-16] MEDS ORDERED: MIDAZOLAM 2 MG/2 ML VIAL ONE (09:48)
[2023-07-16] MEDS ORDERED: GLYCOPYRROLATE 0.2 MG/ML 2 ML VIAL ONE (09:48)
[2023-07-16] MEDS ORDERED: PHENYLEPHRINE 10 MG/ML VIAL ONE (09:48)
--- NOTE | 2023-07-16 11:28 | P.OP ---
Date of Procedure: 07/16/23 Preoperative Diagnosis: Zenker's diverticulum Postoperative Diagnosis: Same Procedure(s) Performed: Resection of Zenker's diverticulum with proximal esophageal myotomy Implants: None Anesthesia: WILLIAMA Surgeon: Sidney Kern Estimated Blood Loss (ml): 25 IV fluids (ml): 1,000 Urine output (ml): 0 Pathology: other (Zenker's diverticulum) Indications for Procedure: 53-year-old female who underwent workup at [facility] for this difficulty swallowing and frequent regurgitation of undigested food. Patient fairly recently underwent cervical fusion with anterior plates and her proximal neck. Patient was diagnosed with Zenker's diverticulum but persistent for some reason did not undergo surgery at [facility]. She saw me for a second opinion. Given the close proximity of the plates to the Zenker's diverticulum I was concerned that the dissection would be quite difficult and explained to the patient that this made her somewhat increased risk. Despite this she insisted on staying in [place] for her surgery. It was scheduled electively. Operative Findings: There was considerable scar tissue around the proximal esophagus at the level of the plates. Small 2-2-1/2 cm Zenker's diverticulum was encountered. We were able to dissected this out without too much difficulty and successfully ligated with a stapler. We were able to perform a successful proximal esophageal myotomy. Description of Procedure: Patient was brought to the operating room placed supine on the operating table. Gen. anesthesia was induced. Patient was intubated with a relatively small endotracheal tube. Esophageal temporal was successfully plastered to the midesophagus. Patient was appropriately positioned for cervical surgery and the left neck upper chest were sterilely prepped and draped. Incision was made over the sternocleidomastoid from the level of the supraclavicular region up to well below the mandible. Was carried down through skin and subcutaneous tissue through the platysma and carried anterior to the sternocleidomastoid. Dissection was carried deeper carried posterior to the carotid and jugular vein. We encircled the esophagus inferiorly and placed a Geovanna drain around it in order to isolate it. Dissection was carried proximally along the esophagus until we reached the area of the plates. This interval scar tissue here and very careful slow dissection was performed to free the esophagus from the area of the plates. Just proximal to this we encountered the Zenker's diverticulum. It was carefully dissected out. The mucosa at the neck of the diverticulum was identified and carefully exposed. An Endo SANDRINE stapler was used to staple up the Zenker's at its neck. Specimen was passed off the field. Staple line was intact and did not appear to be adjacent to the cervical hardware. Esophageal myotomy was performed and carried from the level of the Zenker's staple line inferiorly for a distance of about 3 cm. At this time we were very happy with the appearance of the repair and there was no evidence of bleeding. The sternocleidomastoid was reapproximated anteriorly to the fascia with running 3-0 Vicryl suture and then the platysma layer was also closed with running 3-0 Vicryl suture. Skin was closed with subcuticular 4-0 Vicryl and skin glue and dry sterile dressings were applied. Patient was extubated and transferred to recovery in stable condition.
[2023-07-16] MEDS: MEPERIDINE 50 MG/ML SYRINGE IVP ONE (11:29)
[2023-07-16] MEDS: droPERidol 5 MG/2 ML VIAL IVP ONE (11:44)
--- NOTE | 2023-07-16 11:51 | XR ---
EXAMINATION TYPE: XR chest 1V portable DATE OF EXAM: 07/16/2023 Comparison: 04/27/2021 Clinical History: 53-year-old female post Zenker's resection Findings: ACDF hardware. No soft tissue air is identified. Heart normal size. Aorta and pulmonary vasculature w ithin normal limits. Hyperinflation without consolidation or pleural effusion. Impression: COPD. No acute process seen.
[2023-07-16] MEDS ORDERED: IPRATROPIUM-ALBUTEROL 3 ML NEB IH PRN (13:57)
[2023-07-16] MEDS ORDERED: Ubrogepant [Ubrelvy] 50 MG Tablet PO PRN (13:57)
[2023-07-16] MEDS: HYDROmorphone 0.5 MG/0.5 ML SYRINGE IVP PRN (14:24)
[2023-07-16] MEDS: IPRATROPIUM-ALBUTEROL 3 ML NEB IH SCH (16:15)
[2023-07-16] MEDS: HEPARIN SODIUM,PORCINE 5,000 UNIT/ML 1 ML VIAL SQ SCH (17:14)
[2023-07-16] MEDS: SUMAtriptan succinate 6 MG/0.5 ML VIAL SQ STA (17:15)
[2023-07-16] MEDS: DEXTROSE 5%-0.45% NACL 1,000 ML IV SCH (17:55)
[2023-07-16] MEDS: ACETAMINOPHEN IV (For NPO) 660 MG in EMPTY BAG 1 BAG IVPB SCH (17:55)
[2023-07-16] MEDS: ONDANSETRON 4 MG/2 ML VIAL IVP PRN (19:52)
[2023-07-17] MEDS: KETOROLAC 15 MG/ML 1 ML VIAL IVP PRN (01:41)
[2023-07-17] MEDS: diphenhydrAMINE 25 MG CAP PO PRN (01:42)
[2023-07-17] MEDS: HYDROcodone/APAP 15 ML SOLUTION PO PRN (06:40)
[2023-07-17] MEDS: PANTOPRAZOLE 40 MG TABLET PO SCH (06:40)
[2023-07-17] MEDS: METOCLOPRAMIDE 5 MG/ML 2 ML VIAL IVP PRN (07:58)
[2023-07-17 10:37] LABS: African American GFR (CKD) >90 (>60 ml/min/1.73 sqM); Anion Gap 7 mmol/L; Blood Urea Nitrogen 12 mg/dL (7-17); Calcium 9.1 mg/dL (8.4-10.2); Carbon Dioxide 22 mmol/L (22-30); Chloride 106 mmol/L (98-107); Glucose 118 mg/dL (74-99); Non-African American GFR(CKD) >90 (>60 ml/min/1.73 sqM); Sodium 135 mmol/L (137-145)
[2023-07-17 10:38] LABS: Basophils % (A) 0 %; Eosinophils % (A) 0 %; HCT 36.3 % (34.0-46.0); HGB 11.6 gm/dL (11.4-16.0); Lymphocytes # (A) 1.6 k/uL (1.0-4.8); Lymphocytes % (A) 13 %; MCH 30.6 pg (25.0-35.0); MCHC 31.8 g/dL (31.0-37.0); Mean Platelet Volume 8.5; Monocytes # (A) 0.6 k/uL (0-1.0); Monocytes % (A) 5 %; Neutrophils # (A) 9.9 k/uL (1.3-7.7); Neutrophils % (A) 80 %; Platelet Count 219 k/uL (150-450); RBC 3.78 m/uL (3.80-5.40); RDW 12.3 % (11.5-15.5); WBC 12.4 k/uL (3.8-10.6)
[2023-07-17] MEDS: SUMAtriptan succinate 6 MG/0.5 ML VIAL SQ STA (10:55)
--- NOTE | 2023-07-17 11:46 | P.PN ---
Subjective Progress Note Date: 07/17/23 Principal diagnosis: Zenker's diverticulum with difficulty swallowing and frequent regurgitation of undigested food. Past medical history significant for migraine headaches, fixat ion of C5-C7 with anterior hardware, asthma, arthritis, cervical cancer, insomnia, acid reflux, nasal polyps and history of nicotine dependence. POD #1 Resection of Zenker's diverticulum with proximal esophageal myotomy The patient was seen and examined in follow-up today July 17, 2023 at her bed side on the third floor cardiac stepdown unit. Currently she is sitting up in her bed, is awake, alert, oriented x 3 and is in no acute apparent distress. Denies any complaints of difficulty swallowing or shortness of breath, although is complaining of suffering from a migraine headache. She reports she has had episodes of nausea and dry heaves throughout the night due to her migraine headache yesterday. She was given a dose of Imitrex yesterday subcu x 1, and the patient reports that it did help her headache. She has been tolerating clear liquids, IV fluids D50.45 Normal saline remain infusing at 50 mL/h. The patient reports if it was not for her headache she feels she would be doing great. Laboratory and chest x-ray results reviewed. Objective - Vital Signs Vital signs: Vital Signs Temp 97.7 F 07/17/23 04:30 Pulse 73 07/17/23 07:52 Resp 18 07/17/23 07:52 BP 128/79 07/17/23 07:52 Pulse Ox 95 07/17/23 07:52 FiO2 Intake & Output 07/16/23 07/17/23 07/17/23 18:59 06:59 18:59 Intake Total 1500 20 10 Output Total 25 200 Balance 1475 -180 10 Weight 44 kg Intake: IV 1500 20 10 Invasive Line 2 20 10 Oral 0 Output: Emesis 200 Estimated Blood Loss 25 Other: Voiding Method Toilet Toilet - Exam CONSTITUTIONAL: Cooperative, no acute distress. RESPIRATORY: Lungs sounds diminished bilaterally. Respirations symmetrical, nonlabored. Currently on room air with oxygen saturation 95%. Strong cough. CARDIOVASCULAR: S1, S2 present. Regular rate and rhythm, sinus rhythm on telemetry. Palpable peripheral pulses bilaterally. No edema present. No calf pain or tenderness noted. SCDs present. GASTROINTESTINAL: Abdomen soft, nontender, nondistended. Active bowel sounds present 4 quadrants. Tolerating clear liquid diet. GENITOURINARY: Continues to void clear, yellow urine. INTEGUMENTARY: Skin is warm and dry, no clubbing or cyanosis present. Left neck incision with dressing clean, dry and intact. NEUROLOGIC: Cranial nerves II through XII intact. No focal deficits. Headache. MUSKULOSKELETAL: Able to move all extremities, strength equal bilaterally, gait normal. PSYCHIATRIC: Alert and oriented to person place and time, appropriate affect, intact judgment and insight. - Allied health notes Allied health notes reviewed: nursing - Labs CBC & Chem 7: 07/17/23 08:47 07/17/23 08:47 Labs: Abnormal Lab Results - Last 24 Hours (Table) 07/17/23 07/17/23 Range/Units 08:47 08:47 WBC 12.4 H (3.8-10.6) k/uL RBC 3.78 L (3.80-5.40) m/uL Neutrophils # 9.9 H (1.3-7.7) k/uL Sodium 135 L (137-145) mmol/L Creatinine 0.46 L (0.52-1.04) mg/dL Glucose 118 H (74-99) mg/dL - Imaging and Cardiology Chest x-ray: report reviewed, image reviewed Assessment and Plan Assessment: Zenker's diverticulum, status post resection of Zenker's diverticulum with proximal esophageal myotomy History of migraine headaches History of cervical fusion with anterior plates in her proximal neck Asthma Arthritis Cervical cancer Insomnia Acid reflux Nasal polyps History of nicotine dependence. Plan: Imitrex 6 mg subcu x 1 now for migraine headache. Increase diet to soft diet if tolerated. Discussed with the patient the importance of smoking cessation. Increase activity as tolerated. Out of bed for all meals. Nausea treatment per as needed orders. Pain control per current as needed orders. Discontinue Dilaudid. GI and DVT prophylaxis. Discharge planning is in place, anticipate discharge home within the next 24 hours. More recommendations to follow based on patient's clinical course. Time with Patient: Greater than 30
--- NOTE | 2023-07-17 12:05 | XR ---
EXAMINATION TYPE: XR chest 2V DATE OF EXAM: 07/17/2023 COMPARISON: 07/16/2023 HISTORY: 53 year-old female post sinker's resection follow-up TECHNIQUE: PA and lateral views FINDINGS: ACDF hardware. No soft tissue air is seen. Heart normal size. Hyperinflation and similar interstitial prominence. No consolidation or pleural effusion. IMPRESSION: COPD and chronic changes. No acute process seen.
[2023-07-17 18:59] VITALS: RESP 16
[2023-07-18 07:51] LABS: HCT 35.2 % (34.0-46.0); HGB 11.3 gm/dL (11.4-16.0); MCH 30.9 pg (25.0-35.0); MCHC 32.2 g/dL (31.0-37.0); MCV 96.1 fL (80.0-100.0); Mean Platelet Volume 7.8; Platelet Count 209 k/uL (150-450); RBC 3.67 m/uL (3.80-5.40); RDW 12.3 % (11.5-15.5); WBC 9.3 k/uL (3.8-10.6)
--- NOTE | 2023-07-18 08:21 | XR ---
EXAMINATION TYPE: XR chest 1V portable DATE OF EXAM: 07/18/2023 Comparison: 07/17/2023 Clinical History: 53-year-old female S/P Zenker's repair Findings: ACDF hardware. Heart normal size. Aorta and pulmonary vasculature within normal limits. Mild intersti tial density, hyperinflation, and biapical pleural parenchymal scarring are unchanged. No consolidati on or pleural effusion. Impression: COPD and chronic changes. No acute process seen.
[2023-07-18 08:30] LABS: African American GFR (CKD) >90 (>60 ml/min/1.73 sqM); Anion Gap 8 mmol/L; Blood Urea Nitrogen 9 mg/dL (7-17); Calcium 8.9 mg/dL (8.4-10.2); Carbon Dioxide 22 mmol/L (22-30); Chloride 110 mmol/L (98-107); Glucose 98 mg/dL (74-99); Non-African American GFR(CKD) >90 (>60 ml/min/1.73 sqM); Potassium 3.7 mmol/L (3.5-5.1); Sodium 140 mmol/L (137-145)
--- NOTE | 2023-07-18 09:44 | P.DS ---
Providers Date of admission: 07/17/23 08:01 Expected date of discharge: 07/18/23 Attending physician: Sidney Kern Primary care physician: [facility] Course: FINAL DIAGNOSIS: Zenker's diverticulum, status post resection of Zenker's diverticulum with proximal esophageal myotomy History of migraine headaches History of cervical fusion with anterior plates in her proximal neck Asthma Arthritis Cervical cancer Insomnia Acid reflux Nasal polyps History of nicotine dependence. PRINCIPAL PROCEDURE: 1. Resection of Zenker's diverticulum with proximal esophageal myotomy HISTORY OF PRESENT ILLNESS: This is a 53-year-old female patient who follows on outpatient basis with Dr. Rachel Britton for her primary care. The patient has a history of undergoing an anterior cervical decompression and fusion of the mid cervical spine 2 years ago. Following the surgery the patient has had ongoing issues with swallowing and weight loss due to difficulty swallowing, bouts of nausea and occasional emesis. The patient also reports having episodes of severe chest pain after her surgery which she reports as diagnosed as esophageal spasms. Recently, the patient has had an admission to [facility] with irretractable vomiting and weight loss. Her total weight loss reported was 30 pounds. The patient has been eating a soft diet and drinking Ensure to help promote her nutritional status. During her admission at [facility] she underwent a CT scan which demonstrated anterior displacement of the proximal esophagus due to the presence of hardware from the anterior cervical fusion. It also showed evidence of a small amount of free air around the proximal esophagus with the etiology of this to be not clear, although may have been related to the diverticulum. Subsequently, due to the patient's symptoms and finding of Zenker's diverticulum she was referred to Dr. Sidney Kern from cardiothoracic surgery for further evaluation and treatment recommendations. Dr. Kern met with the patient, reviewed the findings on her above mentioned studies, treatment options were discussed including resection of Zenker's diverticulum. Risks and benefits of surgery were discussed, and knowing and under the standing the risks the patient wished to proceed with the surgical option. HOSPITAL COURSE: The patient was brought to the hospital on 07/16/23, taken to the preoperative area, prepared in the usual fashion, and subsequently taken to the operating room where Dr. Kern performed resection of Zenker's diverticulum with proximal esophageal myotomy. Upon completion of surgery the patient was extubated and taken to the recovery room for further monitoring. She was eventually admitted to 3 S. cardiac stepdown unit for further recovery and hemodynamic monitoring. Her oxygen was titrated down, she was tolerating a soft oral diet, her pain was controlled, and she was ready to be discharged to home on postoperative day #2. She received written and verbal instruction regarding her medications, soft mechanical diet, activity restrictions, importance of smoking cessation, signs and symptoms requiring physician notification, and her follow-up appointments. Plan - Discharge Summary Discharge Rx Participant: No New Discharge Prescriptions: New Ondansetron [Zofran] 4 mg SL Q12HR PRN #14 tab PRN Reason: Nausea And Vomiting Continue Ibuprofen [Motrin] 600 mg PO DAILY PRN PRN Reason: migraines diphenhydrAMINE [Benadryl] 25 mg PO HS PRN PRN Reason: SLEEP Ubrogepant [Ubrelvy] 50 mg PO Q30D PRN PRN Reason: Migraine Headache HYDROcodone/APAP 5-325MG [Joffre 5-325] 1 tab PO BID PRN PRN Reason: Pain Discharge Medication List Ibuprofen [Motrin] 600 mg PO DAILY PRN 03/27/20 [History] HYDROcodone/APAP 5-325MG [Joffre 5-325] 1 tab PO BID PRN 07/13/23 [History] Ubrogepant [Ubrelvy] 50 mg PO Q30D PRN 07/13/23 [History] diphenhydrAMINE [Benadryl] 25 mg PO HS PRN 07/13/23 [History] Ondansetron [Zofran] 4 mg SL Q12HR PRN #14 tab 07/18/23 [Rx] Follow up Appointment(s)/Referral(s): Rachel Britton DO [Primary Care Provider] - As Needed Sidney Kern MD [STAFF PHYSICIAN] - 07/23/23 3:00 pm Activity/Diet/Wound Care/Special Instructions: DISCHARGE INSTRUCTIONS: 1. No driving for 2 weeks, or until physician gives their ok. 2. No lifting, pushing, or pulling more than 10 pounds for 2 weeks. The physician will advise of any restriction changes. 3. Continue pain control per as needed orders. Alternate acetaminophen (Tylenol) and ibuprofen (Motrin/Advil) for pain. 4. Routine incision care. No powders, lotions, ointments on incisions. 5. Please call surgeon/PATTERN MARKER [phone] office, [phone] for difficulty swallowing, swelling in the neck, or temp greater than 101 F or purulent drainage from incisions. 6. Diet, please eat mechanical soft diet, avoid steak, and hard toast. Will advance after follow up with Dr Kern. Discharge Disposition: HOME SELF-CARE
[2023-07-18 11:07] VITALS: BP 130/85; PULSE 82; TEMP 98.2
== END 2023-07-18 10:11 | disposition home or self-care (01) ==
LOC: OR 08:05 → EDSTATUS 09:30 → 3SCARD 12:34 → OR 07-17 08:01 → 3SCARD 07-17 08:01
PROVIDERS: ADMIT Thoracic Surgery (Cardiothoracic Vascular Surgery); ATTEND Thoracic Surgery (Cardiothoracic Vascular Surgery)
DX: K22.5 Diverticulum of esophagus, acquired (principal); K21.9 Gastro-esophageal reflux disease without esophagitis; G43.909 Migraine, unspecified, not intractable, without status migrainosus; J45.909 Unspecified asthma, uncomplicated; G47.00 Insomnia, unspecified; J33.9 Nasal polyp, unspecified; M19.90 Unspecified osteoarthritis, unspecified site; Z85.41 Personal history of malignant neoplasm of cervix uteri; Z87.891 Personal history of nicotine dependence; Z98.1 Arthrodesis status
CPT/HCPCS: 96376 ×2; 96365; 96366; 96372 ×3; 96375 ×2; 94640; 88304; 80048 ×2; 85025; 85027; 71045 ×2; 71046; 43130; G0378 ×2; J3030; J2250; J1644 ×3; J1100; J2765; J2175; J2405 ×2; J0690 ×2; J0131 ×2; J1885; J1170; J1790

== ENCOUNTER → 2023-09-28 | Outpatient (CLI) | payer OTHER ==
--- NOTE | 2023-09-29 09:15 | CT ---
EXAMINATION TYPE: CT abdomen pelvis wo con CT DLP: 194.5 mGycm, Automated exposure control for dose reduction was used. DATE OF EXAM: 09/28/2023 4:15 PM COMPARISON: None CLINICAL INDICATION:Female, 53 years old with history of R10.9 UNSPECIFIED ABDOMINAL PAIN; Z12.31; he maturia TECHNIQUE: Standard CT of the abdomen and pelvis without IV or oral contrast. Lack of IV or oral co ntrast limits evaluation of solid and hollow organ viscera. Coronal and sagittal reformats were perfo rmed. FINDINGS: LOWER CHEST: Unremarkable ABDOMEN LIVER: Unremarkable GALLBLADDER AND BILE DUCTS: Unremarkable. PANCREAS: Unremarkable. SPLEEN: Unremarkable. ADRENAL GLANDS: Unremarkable. KIDNEYS AND URETERS: No evidence of hydronephrosis. There are 2 nonobstructive right renal calculus i dentified with largest in the midportion measuring up to 2.3 mm. No definitive ureteral calculus. PELVIS BLADDER: Incompletely distended but grossly unremarkable. REPRODUCTIVE: Uterus appears surgically absent. ABDOMEN & PELVIS STOMACH AND BOWEL: Stomach and duodenum are unremarkable. Long segment circumferential wall thickenin g of the ascending colon to the proximal transverse colon measuring up to 1.1 cm. Minimal surrounding fat stranding identified. No surrounding fluid collections. The appendix is not visualized. No pneum atosis identified. No evidence of bowel obstruction. PERITONEUM: No evidence of pneumoperitoneum or free fluid. VASCULATURE: Minimal atherosclerotic calcifications are present throughout the abdominal aorta and it s branches. No evidence of aortic aneurysm. MUSCULOSKELETAL: No acute osseous abnormalities LYMPH NODES: No gross evidence for lymphadenopathy. SOFT TISSUE/ABDOMINAL WALL: Unremarkable IMPRESSION: 1. Long segment colitis involving the ascending colon to the proximal transverse colon. Likely from i nfectious/inflammatory etiology. No pericolonic abscess. Consider follow-up colonoscopy after treatme nt. 2. No evidence for obstructive uropathy. Nonobstructive right renal calculi.
--- NOTE | 2023-09-30 13:15 | MM ---
Reason for Exam: Screening (asymptomatic). Last mammogram was performed 3 year(s) and 1 month(s) ago. Patient History: Menarche at age 14. First Full-Term at age 18. Left ovary removed at age 35. Hysterectomy at age 35. Postmenopausal. Patient has history of breast feeding. Maternal grandmother had breast cancer. Mother had breast cancer, age 65. Risk Values: Alethea 5 year model risk: 2.1%. NCI Lifetime model risk: 13.9%. Prior Study Comparison: 04/26/2014 Bilateral Screening Mammogram, [facility]. 02/10/2018 Bilateral Screening Mammogram, [facility]. 09/04/2020 Bilateral Screening Mammogram, [facility]. Tissue Density: There are scattered areas of fibroglandular density. Findings: Analyzed By CAD. Right breast: There is no suspicious group of microcalcifications or new suspicious mass. Left breast: There is no suspicious group of microcalcifications or new suspicious mass. Overall Assessment: Negative, BI-RAD 1 Management: Screening Mammogram of both breasts in [address] [facility] will attempt to contact patient to return for supplemental views and ultrasound if indicated. Patient should continue monthly self-breast exams. A clinical breast exam by your physician is recommended on an annual basis. This exam should not preclude additional follow-up of suspicious palpable abnormalities. Note on Alethea scores and lifetime risk: 1. A Alethea score greater than 3% is considered moderate risk. If this is the case, consider specialist referral to assess eligibility for a risk reducing agent. 2. If overall lifetime risk for the development of breast cancer is 20% or higher, the patient may qualify for future screening with alternating mammogram and breast MRI. Electronically signed and approved by: Yousuf Ordaz DO
== END | disposition home or self-care (01) ==
LOC: RADCTMAIN 15:35
PROVIDERS: ATTEND Family Medicine
DX: Z12.31 Encounter for screening mammogram for malignant neoplasm of breast (principal); N20.0 Calculus of kidney; K52.9 Noninfective gastroenteritis and colitis, unspecified; Z78.0 Asymptomatic menopausal state; Z80.3 Family history of malignant neoplasm of breast
CPT/HCPCS: 74176; 77063; 77067

== ENCOUNTER 2023-11-04 07:45 | Day surgery (SDC) | payer OTHER ==
[2023-11-04] MEDS ORDERED: PROPOFOL 10 MG/ML 20 ML VIAL IV ONE (07:56)
[2023-11-04] MEDS ORDERED: LIDOCAINE 1% INJ 10MG/ML (20 ML MDV) ONE (07:56)
--- NOTE | 2023-11-25 16:25 | PCN ---
PROCEDURE NOTE REQUESTING PHYSICIAN: Serenity Romo. BRIEF HISTORY: The patient is a 53-year-old pleasant white female, scheduled for an upper endoscopy as a part of evaluation of dysphagia and throat discomfort for the last several months' duration. The patient states that she was diagnosed with Zenker diverticulum by Dr. Kern, and she underwent Zenker diverticulectomy 3 months ago. Since then, the dysphagia has improved. However, she continues to have some discomfort in the throat area and occasional dysphagia. Since the surgery, her symptoms of dysphagia have significantly improved. She is scheduled for an upper endoscopy to evaluate further. PROCEDURE PERFORMED: Esophagogastroduodenoscopy with biopsy. PREOPERATIVE DIAGNOSES: 1. History of Zenker diverticulectomy 3 months ago. 2. Intermittent dysphagia to solids. ANESTHESIA: IV sedation per Anesthesia. DESCRIPTION OF PROCEDURE: After informed consent was obtained from the patient, she was brought into the endoscopy unit. IV conscious sedation was administered by Anesthesia under continuous monitoring. Initially, the Olympus GIF-180 video endoscope was inserted into the mouth, esophagus intubated without any difficulty, and was gradually advanced into the stomach and duodenum and carefully examined. Bulb and the second part of the duodenum appeared normal. The scope at this time was withdrawn to the stomach, adequately insufflated with air, and upon careful examination, mucosa of the antrum had patchy areas of erythema consistent with gastritis, and biopsies were done from this area. On retroflexion, the cardia and the fundus appeared normal. Scope was then withdrawn to the esophagus. The GE junction was located at 39 cm from the incisors. There was a small hiatal hernia noted. The entire length of esophagus appeared normal. The proximal cervical esophagus was carefully examined, and there was no obvious esophageal stricture or Zenker diverticulum identified. There was no extrinsic compression noted, and the patient tolerated the procedure well. IMPRESSION: 1. Normal-appearing proximal cervical esophagus with no evidence of Zenker diverticulum or extrinsic compression. 2. Small hiatal hernia. 3. Mild antral gastritis. RECOMMENDATION: Findings of this examination discussed with the patient as well as her family. She was advised to follow up with the biopsy results. Continue with soft diet and follow up in office in 3 to 4 weeks. MMODL / IJN: [id number] /
== END 2023-11-04 08:50 ==
LOC: ORWHC2ENDO 07:45
PROVIDERS: ATTEND Internal Medicine Gastroenterology
DX: Z12.11 Encounter for screening for malignant neoplasm of colon
CPT/HCPCS: 43239

== ENCOUNTER → 2023-11-30 | Outpatient (CLI) | payer OTHER ==
[2023-11-30 09:59] VITALS: BP 114/76; PULSE 90; RESP 16
--- NOTE | 2023-11-30 11:01 | XR ---
EXAMINATION TYPE: XR cervical spine limited DATE OF EXAM: 11/30/2023 10:27 AM CLINICAL INDICATION: Female, 53 years old with history of M54.12 cervicalgia; [facility] COMPARISON: 11/20/2021. TECHNIQUE: The cervical spine was imaged in frontal, lateral, and odontoid. FINDINGS: Postsurgical changes C5-C6 and C7. C6 and C7 screws may have pulled back out of the vertebr al bodies when comparing to 11/20/2021. The hardware does appear intact however. The osseous structure s show postsurgical alignment without evidence of an acute fracture. No significant vertebral body os teophytes or facet joint arthropathy. The intervertebral disk spaces are preserved. Pedicles are inta ct. Soft tissues are within normal limits. The odontoid appears intact. IMPRESSION: Evidence for hardware migration involving the C6 and C7 screws which are more anteriorly displaced co mpared to prior on 11/20/2021. Surgical consultation recommended.
--- NOTE | 2023-11-30 13:32 | P.PAINPG ---
PQRS Measure Charge Sheet Comment: HISTORY OF PRESENT ILLNESS: A 53 yr old female as a referral from Serenity MARSHALL presents today w severe and chronic neck pain secondary to post laminectomy syndrome for evaluation. Pt states pain level is provoked at 6 /10 in intensity, constant, localized in the R cervical spine, predominantly axial, sharp in character w occasional shooting pain towards the R side of neck down RUE. Pain is provoked by rotation, lateral flexion. Pain is alleviated by heat, ice, medications ([place]ark[place] 5/325mg #60 from Clarissa MARSHALL, Ibu), Lidocaine topical, repositioning and rest . PMH: OA, Asthma, Cervical CA, R BBB, Angina, COPD, GERD, HH, Nephrolithiasis, Anxiety PSH: Cervical surgery, Esophageal Myotomy (Jun 2023), Hysterectomy, R Oophorectomy, Salpingectomy, Exploratory Laparoscopies, Sinus Surgery, Cervix Excision SH: Daily tobacco use, No ETOH abuse, No illicit drug use FH: Mo- CA All: See list Meds: See list REVIEW OF ORGAN SYSTEMS: CONSTITUTIONAL: No fevers or chills. No recent weight loss. NEUROLOGICAL: + numbness and tingling along the distal extremities. No seizure disorders or headaches. MUSCULOSKELETAL: + pain PSYCHIATRIC: Denies current depression or suicidal thoughts. Physical Examinations : Constitutional : Cooperative , not in acute distress . Neurologic : Cranial nerve II to XII intact. No focal neurological deficits. Psychiatric : alert & oriented x 3. Matching mood & appropriate affect. Judgment & insight intact. Musculoskeletal : Cervical Spine Motor strength in the deltoid and biceps: Normal right side. Normal Left side Motor strength biceps and the wrist extensors: Normal right side . Normal left side Motor strength in the triceps muscle: Normal right side. Normal left side Deep tendon reflexes: Normal at the biceps. Normal at Brachioradialis. Normal at triceps Vertebral body tenderness to deep palpation over C6 Cervical facet loading test: positive bilaterally Spurling test: positive bilaterally Neck distraction test: positive bilaterally Eleuterio sign: positive bilaterally Lumbar spine Motor strength lower extremities ,thigh and legs 5/5 Right side , 5/5 Left side Deep tendon reflexes : Normal Knee Jerk. Normal Ankle Jerk Vertebral body tenderness over Arguelles Test positive Lumbar facet Loading Test: positive Right / positive Left Range of motion of the lumbar spine Flexion 30 degrees, extension 10 degrees Straight Leg Raise test: Left/ Right positive at degrees Ren test: positive right / positive left. Severe tenderness over the Sacroiliac joint on the Right / Left sides Gaenslen test: positive bilaterally Seated flexion test: positive bilaterally. Sacral spine : Severe tenderness over the Sacroiliac joint: right side / left side Range of motion: Flexion of the lumbar spine <60 degrees Range of motion: Extension of the lumbar spine <20 degrees Gaenslen's Test positive Ren test: positive right side / left side Thigh Thrust Test Sacral Thrust Test Imaging: None on file Assessment/ Plan : Cervical post laminectomy syndrome Recommendation of cervical x ray M54.12. Valium 5mg #2 NR use, side effects, adverse reactions, safe storage discussed. MRI may be needed. All questions answered. I have spent greater than 30 minutes on patient care today. Dr Garisa was available by phone for the evaluation of this patient. The time was used to review the medical records including relevant urine studies and Prescription history (MAPs), review of the available imaging, evaluation and examination of the patient, coordination of care with the medical staff and if applicable referring physicians, as well as creation of the medical record PQRS Narrative: Smoking Status Current every day smoker Home Medications: Ambulatory Orders Ibuprofen [Motrin] 600 mg PO DAILY PRN 03/27/20 HYDROcodone/APAP 5-325MG [Sparkman 5-325] 1 tab PO BID PRN 07/13/23 Ubrogepant [Ubrelvy] 50 mg PO Q30D PRN 07/13/23 diphenhydrAMINE [Benadryl] 25 mg PO HS PRN 07/13/23 Ondansetron [Zofran] 4 mg SL Q12HR PRN #14 tab 07/18/23 Ubrogepant [Ubrelvy] 100 mg PO DAILY 11/30/23 Controlled Substance Measures - Controlled Substance Measures Is patient prescribed a controlled substance at discharge?: Yes When asked, does pt state using other controlled substances?: Yes If prescribed controlled substance>3 days was MAPS reviewed?: Prescribed <3 Days
== END ==
LOC: PNWHC3 08:58
PROVIDERS: ATTEND Specialist
DX: G89.29 Other chronic pain
CPT/HCPCS: 72040; 99211

== ENCOUNTER → 2023-12-25 | Outpatient (CLI) | payer OTHER ==
--- NOTE | 2023-12-26 11:15 | MR ---
EXAMINATION TYPE: MR cervical spine wo con DATE OF EXAM: 12/25/2023 COMPARISON: 11/30/2023 x-ray HISTORY: Severe neck pain that radiates down right arm and shoulder/ headaches CONTRAST: Performed utilizing 0 mL intravenous Gadavist gadolinium contrast. TECHNIQUE: Multiplanar multiecho imaging on a 3.0 Micki magnet is performed through the cervical spin e. FINDINGS: The craniovertebral junction is normal. Vertebral body alignment is normal. Anterior cer vical fusion is present C5-7. C7-T1: No focal disc herniation or significant disc bulge is evident. No spinal canal stenosis or n eural foraminal stenosis is present. C6-7: No focal disc herniation or significant disc bulge is evident. No spinal canal stenosis or lindsay ral foraminal stenosis is present. C5-6: No focal disc herniation or significant disc bulge is evident. No spinal canal stenosis. There is some mild uncovertebral joint hypertrophy with mild left foraminal narrowing. C4-5: No focal disc herniation or significant disc bulge is evident. No spinal canal stenosis or lindsay ral foraminal stenosis is present. C3-4: No focal disc herniation or significant disc bulge is evident. No spinal canal stenosis or lindsay ral foraminal stenosis is present. C2-3: No focal disc herniation or significant disc bulge is evident. No spinal canal stenosis or lindsay ral foraminal stenosis is present. IMPRESSION: 1. Mild left foraminal narrowing C5-6. 2. Anterior cervical fusion lower cervical spine. [facility], Workstation: [facility], 12/26/2023 11:13 AM
== END | disposition home or self-care (01) ==
LOC: RADMRIMAIN 16:32
PROVIDERS: ATTEND Specialist
DX: M54.12 Radiculopathy, cervical region
CPT/HCPCS: 72141

== ENCOUNTER → 2023-12-31 | Outpatient (CLI) | payer OTHER ==
[2023-12-31 09:09] VITALS: BP 110/75; PULSE 97; RESP 16; TEMP 96.9
--- NOTE | 2023-12-31 14:42 | P.PAINPG ---
Objective - Vital Signs Vital signs: Intake & Output 12/30/23 12/31/23 12/31/23 18:59 06:59 18:59 Weight 42.638 kg PQRS Measure Charge Sheet Comment: HISTORY OF PRESENT ILLNESS: A 53 yr old female presents today w severe and chronic neck pain secondary to post laminectomy syndrome for imaging results. Pt states pain level is provoked at 6 /10 in intensity, constant, localized in the R cervical spine, predominantly axial, sharp in character w occasional shooting pain towards the R side of neck down RUE. Pain is provoked by rotation, lateral flexion. Pain is alleviated by heat, ice, medications, topical, repositioning and rest . Interventional procedures include C5-C7 Anterior Fusion w C6-C7 hardware Medications include [place] 5/325mg from [facility], Ibu, Lidocaine REVIEW OF ORGAN SYSTEMS: CONSTITUTIONAL: No fevers or chills. No recent weight loss. NEUROLOGICAL: + numbness and tingling along the distal extremities. No seizure disorders or headaches. MUSCULOSKELETAL: + pain PSYCHIATRIC: Denies current depression or suicidal thoughts. Physical Examinations : Constitutional : Cooperative , not in acute distress . Neurologic : Cranial nerve II to XII intact. No focal neurological deficits. Psychiatric : alert & oriented x 3. Matching mood & appropriate affect. Judgment & insight intact. Musculoskeletal : Cervical Spine Motor strength in the deltoid and biceps: Normal right side. Normal Left side Motor strength biceps and the wrist extensors: Normal right side . Normal left side Motor strength in the triceps muscle: Normal right side. Normal left side Deep tendon reflexes: Normal at the biceps. Normal at Brachioradialis. Normal at triceps Vertebral body tenderness to deep palpation over C7 Arguelles test positive R C7-T1 Cervical facet loading test: positive bilaterally Spurling test: positive bilaterally Neck distraction test: positive bilaterally Eleuterio sign: positive bilaterally Lumbar spine Motor strength lower extremities ,thigh and legs 5/5 Right side , 5/5 Left side Deep tendon reflexes : Normal Knee Jerk. Normal Ankle Jerk Vertebral body tenderness over Arguelles Test positive Lumbar facet Loading Test: positive Right / positive Left Range of motion of the lumbar spine Flexion 30 degrees, extension 10 degrees Straight Leg Raise test: Left/ Right positive at degrees Ren test: positive right / positive left. Severe tenderness over the Sacroiliac joint on the Right / Left sides Gaenslen test: positive bilaterally Seated flexion test: positive bilaterally. Sacral spine : Severe tenderness over the Sacroiliac joint: right side / left side Range of motion: Flexion of the lumbar spine <60 degrees Range of motion: Extension of the lumbar spine <20 degrees Gaenslen's Test positive Ren test: positive right side / left side Thigh Thrust Test Sacral Thrust Test Imaging: Cervical x ray from 11/30/23 reviewed MRI non contrast cervical spine from 12/25/23 reviewed Assessment/ Plan : Cervical post laminectomy syndrome Recommendation of MARIELA C7-T1 #1. Risks, benefits of procedure discussed and pt verbalized understanding. Protocol for discontinuation/ continuation of medications linda procedure discussed. All questions answered. I have spent greater than 30 minutes on patient care today. Dr Garsia was available by phone for the evaluation of this patient. The time was used to review the medical records including relevant urine studies and Prescription history (MAPs), review of the available imaging, evaluation and examination of the patient, coordination of care with the medical staff and if applicable referring physicians, as well as creation of the medical record PQRS Narrative: Smoking Status Current every day smoker Hx Alcohol Use (MH) No Home Medications: Ambulatory Orders Ibuprofen [Motrin] 600 mg PO DAILY PRN 03/27/20 HYDROcodone/APAP 5-325MG [[place] 5-325] 1 tab PO BID PRN 07/13/23 Ubrogepant [Ubrelvy] 50 mg PO Q30D PRN 07/13/23 diphenhydrAMINE [Benadryl] 25 mg PO HS PRN 07/13/23 Ondansetron [Zofran] 4 mg SL Q12HR PRN #14 tab 07/18/23 Ubrogepant [Ubrelvy] 100 mg PO DAILY 11/30/23 diazePAM [Valium] 5 mg PO DAILY PRN 1 Days #2 tab 11/30/23 Controlled Substance Measures - Controlled Substance Measures Is patient prescribed a controlled substance at discharge?: No
== END | disposition home or self-care (01) ==
LOC: PNWHC3 08:01
PROVIDERS: ATTEND Specialist
DX: M54.12 Radiculopathy, cervical region
CPT/HCPCS: 99211

== ENCOUNTER 2024-01-14 11:47 | Day surgery (SDC) | payer OTHER ==
[2024-01-14] MEDS ORDERED: LACTATED RINGERS 1,000 ML IV SCH (11:59)
[2024-01-14 12:04] VITALS: RESP 16; TEMP 97.4
[2024-01-14] MEDS ORDERED: IOPAMIDOL M300 15ML VIAL ONE (13:08)
[2024-01-14] MEDS ORDERED: ROPIVACAINE 5MG/ML 20ML VIAL ONE (13:08)
[2024-01-14] MEDS ORDERED: DEXAMETHASONE SOD PHOSPHATE 10 MG/ML 1 ML VIAL ONE (13:08)
--- NOTE | 2024-01-14 13:42 | P.PCN ---
Description of Procedure: PROCEDURE 1. Injection of radio contrast material into cervical epidural space, cervical epidurogram, interpretation of cervical epidurogram, Cervical epidural steroid injection under fluoroscopic guidance, C7-T1 (fluoroscopy images available in the radiology department ) 2. Cervical epidurogram. PREOPERATIVE DIAGNOSIS: 1- Cervical Degenerative Disc Diseases 2- Cervical radiculopathy., 3-cervical spondylosis with cervical Facet arthropathy without myelopathy.4-cervical spinal stenosis POSTOPERATIVE DIAGNOSIS: : 1- Cervical Degenerative Disc Diseases , 2- Cervical radiculopathy. 3-,cervical spondylosis with cervical Facet arthropathy without myelopathy. 4-cervical spinal stenosis ANESTHESIA: Local anesthetics infiltration. In the OR continuous pulse ox, EKG, blood pressure and verbal communication was maintained. EBL : None PROCEDURE INDICATION: The patient with neck pain and radiculitis unresponsive to conservative treatment consents for procedure. Discussed the procedure, alternatives and possible complications which may include increased pain, infection, bleeding, nerve damage, paralysis all of which could be permanent. Patient understands and all questions were answered. PROCEDURE DESCRIPTION : After getting consent patient was taken to the OR , positioned in prone position and time out was completed. A pillow was placed under the patients chest to increase the cervical interlaminar space. The cervical area was prepped and draped in the usual sterile fashion. Using anterior-posterior fluoroscopy, interlaminar space was identified and the skin over this site was marked and then infiltrated with 1% lidocaine subcutaneously. Subsequently, a 20-gauge 3-1/2-inch Tuohy epidural needle was inserted and advanced toward the epidural space with the loss of resistance technique using a syringe filled with preservative-free normal saline and guided by AP and lateral fluoroscopy. Negative CSF, negative blood, negative paresthesia. The correct needle position in the epidural space was verified with the injection of 2 mL of the water soluble contrast dye Isovue-200 and observing an excellent epidurogram with the epidural spread of the dye, after repeat negative aspiration 3 mL solution was injected which consists of 1 mL of preservative-free normal saline mixed with 2 mL of 20 mg dexamethasone and a washout of epidurogram was seen. Needle was withdrawn intact, skin was cleansed, and bandages were applied. Disposition: Patient tolerated the procedure well. No complication. Patient was placed in supine position and transferred to the recovery room area in stable condition and there was no evidence of upper or lower extremity motor or sensory deficit after the procedure patient was discharged from recovery room after discharge criteria met and home discharge instructions was given by the staff and patient will follow with the pain clinic in 2-4 weeks
[2024-01-14 13:59] VITALS: BP 113/60; PULSE 78
--- NOTE | 2024-01-14 15:08 | FL ---
EXAMINATION TYPE: FL guided pain mgmt statistic DATE OF EXAM: 01/14/2024 FLUOROSCOPY 18 sec fl .[id number] dap dose Images during cervical epidural injection. 2 images submitted. [facility], , 01/14/2024 3:06 PM
== END 2024-01-14 14:05 | disposition home or self-care (01) ==
LOC: ORPAIN 11:47
PROVIDERS: ATTEND Pain Medicine Interventional Pain Medicine
CPT/HCPCS: 62321